=== PATIENT | female | born 1995 | race Caucasian/White ===

== ENCOUNTER 2016-12-26 16:29 | Emergency (ER) | payer MEDICAID ==
[~2016-12-26] VITALS: Ht 162.6 cm; Wt 60.0 kg
[~2016-12-26 16:29] MED LIST: NITR100C56 PO
[2016-12-26 17:12] LABS: HEMOGLOBIN 15.3 g/dL (11.7-16.4)
[2016-12-26 17:24] LABS: BLOOD UREA NITROGEN 6 mg/dL (7-18)
[2016-12-26 17:35] LABS: HCG UR OBC PASS
[2016-12-26 17:39] LABS: ACETAMINOPHEN < 2 mcg/mL (10-30)
[2016-12-26 18:02] LABS: DAU SCREEN DISCLAIMER
[2016-12-26 19:09] VITALS: BP 124/75
== END 2016-12-26 19:12 | disposition home or self-care (01) ==
LOC: ED 18:12
DX: F32.9 Major depressive disorder, single episode, unspecified (principal); F15.10 Other stimulant abuse, uncomplicated; F12.10 Cannabis abuse, uncomplicated; Z79.899 Other long term (current) drug therapy
CPT/HCPCS: 36415; 80048; 80307; 80329; 81025; 82040; 85025; 99284; G0480

== ENCOUNTER 2021-03-08 17:21 | Emergency (ER) | payer MEDICAID, OTHER ==
[~2021-03-08] VITALS: Ht 162.6 cm; Wt 103.4 kg
[2021-03-08] MEDS ORDERED: HYDROcodone/APAP 5/325 TABLET PO ONE (18:30)
[2021-03-08] MEDS ORDERED: CLINDAMYCIN 300 MG CAPSULE PO ONE (18:30)
[2021-03-08] MEDS ORDERED: CLINDAMYCIN 300 MG CAPSULE ONE (18:43)
[2021-03-08] MEDS ORDERED: HYDROcodone/APAP 5/325 TABLET ONE (18:43)
[2021-03-08 18:49] VITALS: BP 135/90
== END 2021-03-08 18:55 | disposition home or self-care (01) ==
LOC: ED 18:48
DX: K02.9 Dental caries, unspecified (principal); K08.89 Other specified disorders of teeth and supporting structures
CPT/HCPCS: 99283

== ENCOUNTER 2021-05-15 19:32 | Emergency (ER) | payer OTHER ==
[~2021-05-15] VITALS: Ht 162.6 cm; Wt 101.0 kg
[2021-05-15 19:38] VITALS: BP 132/74
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
--- NOTE | 2021-05-15 19:54 | NUR ---
amaury ozuna to bedside for evaluation.
[2021-05-15] MEDS ORDERED: LIDOCAINE-MPF 1%, 5ML INFIL ONE (20:00)
[2021-05-15] MEDS ORDERED: LIDOCAINE-MPF 1%, 5ML ONE (20:03)
--- NOTE | 2021-05-15 22:06 | NUR ---
Patient given discharge instructions and they have confirmed that they understand the instructions. Patient ambulatory with steady gait. NAD, all questions answered appropriately, denies additional needs at this time. No personal belongings left in room after discharge.
== END 2021-05-15 22:07 | disposition home or self-care (01) ==
LOC: ED 20:02
DX: S91.202A Unspecified open wound of left great toe with damage to nail, initial encounter (principal); M79.672 Pain in left foot; X58.XXXA Exposure to other specified factors, initial encounter; Y93.89 Activity, other specified; Y92.009 Unspecified place in unspecified non-institutional (private) residence as the place of occurrence of the external cause; Y99.8 Other external cause status
CPT/HCPCS: 64450; 99284

== ENCOUNTER 2021-07-02 08:48 | Emergency (ER) | payer OTHER ==
[~2021-07-02] VITALS: Ht 162.6 cm; Wt 101.4 kg
[2021-07-02 09:02] VITALS: BP 126/72
--- NOTE | 2021-07-02 09:27 | NUR ---
quahogger note: Pt to room from lobby.
[2021-07-02] MEDS ORDERED: IBUPROFEN 600 MG TABLET ONE (09:58)
[2021-07-02] MEDS ORDERED: IBUPROFEN 600 MG TABLET PO ONE (10:00)
--- NOTE | 2021-07-02 10:02 | NUR ---
Pt refused motrin says has no pain just irritation to throat. Ibuprofen unopened returned to [facility].
--- NOTE | 2021-07-02 10:27 | NUR ---
Pt dc home with instruct, pt verbalizes understnading.
[2021-07-02 10:32] LABS: RAPID INFLUENZA A Negative (Negative); RAPID INFLUENZA B Negative (Negative)
== END 2021-07-02 10:32 | disposition home or self-care (01) ==
LOC: ED 09:18
DX: U07.1 COVID-19 (principal); B34.9 Viral infection, unspecified; E66.01 Morbid (severe) obesity due to excess calories; Z88.0 Allergy status to penicillin; Z90.89 Acquired absence of other organs; Z68.38 Body mass index [BMI] 38.0-38.9, adult
CPT/HCPCS: 87081; 87400; 87880; 99283; U0003; U0005